=== PATIENT | male | born 1970 | race Caucasian/White ===

== ENCOUNTER 2018-02-09 07:11 | Day surgery (SDC) | payer BC, OTHER ==
--- NOTE | 2018-02-06 18:30 | HP ---
AMENDED REPORT NOW INCLUDES COSIGNER DESIGNATION - ESIGNED BEFORE ADJUSTMENTS PREOPERATIVE HISTORY AND PHYSICAL: DATE OF ADMISSION/SURGERY: 02/09/18 DATE OF OFFICE VISIT: 02/05/18 ATTENDING SURGEON: Marilou Scherer MD * (DICTATED BY ANISH JOHNSON) PROCEDURE: Left shoulder arthroscopic decompression, debridement, possible rotator cuff repair. CHIEF COMPLAINT: Left shoulder. HISTORY OF PRESENT ILLNESS: Storm is a 47-year-old male who presents to the clinic for left shoulder pain due to rotator cuff injury. He has failed conservative measures and therefore agreed to undergo left shoulder arthroscopic decompression, debridement, and possible rotator cuff repair with Dr. Scherer on 02/09/18. PAST MEDICAL HISTORY: 1. Type 2 diabetes. 2. Thyroid disease. PAST SURGICAL HISTORY: 1. Nasal polyp removal. 2. Hazard teeth removal. 3. Denies prior complications with anesthesia. MEDICATIONS: 1. Lantus 100 units/mL, 15 units subcu. 2. Levothyroxine 125 mcg 1 by mouth daily. 3. Lisinopril 20 mg 1 by mouth every day. 4. Simvastatin 20 mg 1 by mouth daily. 5. Tamsulosin HCL 0.4 mg 1 by mouth daily. 6. Humalog 100 units/mL. ALLERGIES: No known drug allergies. FAMILY HISTORY: Positive for diabetes in his maternal uncle. SOCIAL HISTORY: He denies tobacco use; however, he does smoke marijuana. He reports occasional alcohol consumption at 3 to 5 drinks per week. He exercises occasionally. He is right hand dominant. REVIEW OF SYSTEMS: A 14-point review of systems was reviewed with the patient. Positive for current complaint, otherwise negative. Denies fever, chills, chest pain, shortness of breath, history of DVT or PE, history of MRSA, history of bleeding disorder. PHYSICAL EXAMINATION GENERAL: A 47-year-old well-developed, well-nourished male, in no acute distress. Alert and oriented x3. Appropriate mood and affect. Appropriate balance and coordination of the upper extremities. VITAL SIGNS: Height 65, weight 172, pulse 68, blood pressure 126/66, respiratory rate 18, temperature is 97.7, BMI 28.6. HEENT: Normocephalic, atraumatic. PERRLA. Throat: Clear. NECK: Supple. PULMONARY: Lungs are clear to auscultation bilaterally. No wheezing, rhonchi, or rales. CARDIO: Regular rate and rhythm. S1, S2. No murmurs, gallops, or rubs. No edema. ABDOMEN: Positive bowel sounds, soft, nontender. NEURO: Alert and oriented x3. Cranial nerves grossly intact. Sensation is intact to light touch distally. MUSCULOSKELETAL: Left upper extremity, skin is intact. No warmth or erythema. Igor deformity. Forward flexion, abduction 175, external rotation 75. +4/5 strength to rotator cuff testing with pain, especially subscapularis testing. + 2 radial pulse. Sensation intact to light touch distally. DIAGNOSTIC STUDIES: MRI of the left shoulder revealed mild glenohumeral osteoarthritis, mild AC joint arthritis, rotator cuff appears intact with some tendinopathy and partial tearing, cyst in the suprascapular notch. Subscapularis is intact. Possible tear of the long head of biceps with flap lesion. ASSESSMENT: Left shoulder partial rotator cuff tear. PLAN: The patient is scheduled to undergo a left shoulder arthroscopic decompression, debridement, possible rotator cuff repair with Dr. Scherer on . He will follow up 10 to 14 day postop for followup and suture removal. Percocet was prescribed to the patient's pharmacy for postop pain management. ANISH JOHNSON [id number]/[facility] #: [id number] MTDD
[~2018-02-09 07:11] MED LIST: Buffered Lidocaine 0.9% SYRIN* 5 ML/SYR SYRINGE INTRADERM ONE; DiMENhydriNATE IV* 50 MG/ML VIAL IV PUSH PRN; Famotidine IV* 10 MG/ML 2 ML (20 mg) IV ONE; Morphine VIAL* 4 MG/ML VIAL (1 ml vial) IV PRN; Naloxone* 0.4 MG/ML 1 ML VIAL IV PRN; Ondansetron INJ* 2 MG/ML VIAL ONE; PROCHLORPERAZINE INJ 5 MG/ML 2 ML VIAL IV PRN; Scopolamine 1.5 mg* PATCH TRANSDERM PRN; fentaNYL* 50 MCG/ML 2 ML VIAL (100 MCG VIAL) IV PRN; oxyCODONE/Acetamin 5/325 MG* TAB PO PRN
[2018-02-09] MEDS ORDERED: Ondansetron ODT TAB* 4 MG ONE (07:27)
[2018-02-09] MEDS ORDERED: Famotidine IV* 10 MG/ML 2 ML (20 mg) ONE (07:28)
[2018-02-09] MEDS ORDERED: ceFAZolin 2 GM PREMIX in ORs 2 GM/50 ML BAG IVPB ONE (07:28)
[2018-02-09] MEDS ORDERED: Bupivacaine 0.25% SDV* 30 ML ONE (08:06)
[2018-02-09] MEDS ORDERED: fentaNYL* 50 MCG/ML 2 ML VIAL (100 MCG VIAL) ONE ×2 (08:09→11:04)
[2018-02-09] MEDS ORDERED: KETAMINE HCL* 50 MG/ML 10 ML VIAL ONE (08:09)
[2018-02-09] MEDS ORDERED: Midazolam* 1 MG/ML 5 ML VIAL (5 MG) ONE (08:09)
[2018-02-09] MEDS ORDERED: ROPIVACAINE 5 MG/ML 30 ML BTL (0.5%) ONE (08:21)
[2018-02-09] MEDS ORDERED: Propofol* 10 MG/ML 20 ML BTL IV PUSH ONE (10:20)
[2018-02-09] MEDS ORDERED: Ketorolac INJ* 30 MG/ML 1 ML VIAL ONE (10:20)
[2018-02-09] MEDS ORDERED: PROCHLORPERAZINE INJ 5 MG/ML 2 ML VIAL ONE (10:20)
[2018-02-09] MEDS ORDERED: Phenylephrine INJ* 10 MG/ML 1 ML VIAL (10 MG) ONE (10:20)
[2018-02-09] MEDS ORDERED: Scopolamine 1.5 mg* PATCH ONE (12:19)
[2018-02-09 12:57] VITALS: BP 148/83
[2018-02-09] MEDS ORDERED: Prochlorperazine TAB* 10 MG PO ONE (13:00)
--- NOTE | 2018-02-11 14:41 | OP ---
CC: Dr. Katerin ROLON * DATE OF OPERATION: 02/09/18 - [facility] DATE OF : 66 ATTENDING SURGEON: Marilou Scherer MD DITCH RIDER: ANISH Harry ANESTHESIOLOGIST: Dr. Guevara. ANESTHESIA: General interscalene block. PRE-OP DIAGNOSIS: Left shoulder partial-thickness tear of the rotator cuff with a ruptured biceps tendon. POST-OP DIAGNOSIS: High-grade partial-thickness tear of the supraspinatus tendon with a ruptured biceps tendon, mild osteoarthritis. OPERATIVE PROCEDURE: Left shoulder arthroscopic with: 1. Extensive glenohumeral debridement with debridement of the anterior, posterior, and superior labrum as well as chondroplasty. 2. Rotator cuff repair of the supraspinatus tendon and a double row repair with augmentation of REGENETEN path. 3. Subpectoral biceps tenodesis. 4. Subacromial decompression with acromioplasty. INDICATIONS: Mr. Medellin is a 47-year-old male who sustained an injury to his shoulder when he was trying to help his mother move some things. He sustained immediate pain. He ruptured his biceps at that time. Initially, he did okay. We tried physical therapy, antiinflammatories. We tried an injection, although he does have diabetes. He continued to struggle. We obtained an MRI, which demonstrated a partial-thickness tear of the rotator cuff. He failed conservative treatments and risks and benefits were discussed in length included , but not limited to, bleeding; infection; damage to nerves, vessels, surrounding structures; wound nonhealing; persistent pain; need for surgery; scaring stiffness; incomplete relief of symptoms; and risks of anesthesia. He has elected to proceed with surgery. IMPLANTS USED: One Q-Fix 2.8 mm, one 4.75 Healicoil, 1 Multi-Fix and 1 REGENETEN patch size medium. COMPLICATIONS: None. ESTIMATED BLOOD LOSS: Minimal. DESCRIPTION OF PROCEDURE: The patient was greeted in the preoperative area by the attending surgeon. Correct extremity was marked, consent was confirmed. He then underwent interscalene nerve block by anesthesiologist, after which he was brought back to the operating suite where he was placed in a supine position on the operating room table and then underwent general anesthesia with LMA intubation, after which he was placed in the right lateral decubitus position. All bony prominences were padded. He was secured with a pegboard. The left arm was draped unsterile with 10 pounds of traction. The left arm was draped in a sterile fashion using chlorhexidine soap, scrub and alcohol wipe and a final prep with ChloraPrep. After appropriate surgical pause indicating site, side, procedure, and administration of antibiotics, the posterolateral portal was made sharply with an 11-blade, the scope was introduced through the joint. The joint was examined. There was significant high-grade partial-thickness tearing in the supraspinatus tendon. There was evidence of biceps rupture and superior labral tearing. There was mild osteoarthritis that was present, grade 2 changes with unstable flaps. The anterior portal was made in an outside-end fashion. Shaver was used to debride back the anterior, posterior, and superior labrum. It was well chondroplastied. The inferior recess was intact. There was abundant synovitis and irritation about the joint. At this point, the subscap was intact and had mild fraying, but was mostly intact. The undersurface tear of the rotator cuff was then marked with a PDS suture for identification of the bursal site. Once the intraarticular portion had completed, attention was directed to the bursal side. The scope was positioned in the bursal and the subacromial space. The lateral portal was made in an outside-in fashion. Shaver was used to debride back the abundant bursa that was present. The PDS suture was visualized and there was partial-thickness tearing on the bursal surface as well. Decision was made to do a full rotator cuff repair. Next, first attention was directed to do acromioplasty. The electrocautery device was used to skeletonize the acromion and then, the 4- 0 oval bur was used to do an acromioplasty. Once this was completed, attention was directed to the rotator cuff. An 11-blade was used to complete the tear of the rotator cuff. The shaver was used to debride back the diseased portion of the cuff and electrocautery device was used to skeletonize the greater tuberosity, which was then also prepared with a rasp and a 4-0 oval bur to gently decorticate. At this point, the cuff tissue was then carefully mobilized, and at the medial aspect of the greater tuberosity, a 4.75 Healicoil was placed with excellent purchase. The bone quality was okay, slightly poor for his age. The sutures were then passed through the tendon in a horizontal mattress configuration. This was then tied down using arthroscopic knot tying technique. There was a small dog ear, so an extra suture was then placed in a simple fashion and the sutures were then passed through a second anchor or Multi- Fix anchor, which was placed to a lateral row fixation. At this point, because of the patient's history of diabetes, decision was made to try to augment this with a REGENETEN patch. A medium-sized REGENETEN patch was then brought to the field and placed under arthroscopic visualization. It was secured medially with tendon santy and then laterally with bone santy. The final images were obtained and the cuff was approximated and patched as well. Attention was then directed to the biceps. The anterior aspect of the shoulder was prepped in the usual fashion. A 15- blade was used to make an incision along the biceps. Soft tissues were carefully dissected and exposed biceps tendon, which was brought through the joint, found to have synovitis and partial tearing. The groove was then prepared with an electrocautery device, red ball rasp, and osteotome. The Q- Fix drill then drilled unicortically. The Q-Fix was deployed with excellent purchase. Sutures were then passed through the tendon approximately 1 cm proximal to the musculotendinous junction. The excess stump was excised and then biceps was shovelled back to the wound and tied down. Wounds were copiously irrigated with sterile saline and portals were closed with 3-0 nylon. Sterile dressings as well as Cryo/Cuff and UltraSling were applied and he was awoken from anesthesia and transferred to PACU in stable condition. POSTOPERATIVE PLAN: He will be nonweightbearing. He will be in a sling for 6 weeks. He will be discharged on pain medications, antibiotics. DVT prophylaxis was considered, but deferred due to no previous personal or family history. I will see the patient back in 10 to 14 days. [id number]/[facility] #: [id number] GIOVANNA
[2018-02-12] MEDS ORDERED: Scopolamine PATCH Remove* 1 NOTE MISC PATCH OFF ONE (06:47)
== END 2018-02-09 12:51 | disposition home or self-care (01) ==
LOC: OREAST 07:11
PROVIDERS: ATTEND Orthopaedic Surgery
DX: S46.012A Strain of muscle(s) and tendon(s) of the rotator cuff of left shoulder, initial encounter (principal); S46.212A Strain of muscle, fascia and tendon of other parts of biceps, left arm, initial encounter; X58.XXXA Exposure to other specified factors, initial encounter; E11.9 Type 2 diabetes mellitus without complications; Z79.4 Long term (current) use of insulin; Z79.899 Other long term (current) drug therapy
CPT/HCPCS: A9270-GY; C1713; J0690; J0780; J1885; J2250; J2704; J2795; J3010; Q0164